=== PATIENT | female | born 1965 | race Caucasian/White ===

== ENCOUNTER 2018-07-24 13:52 | Outpatient (CLI) | payer BC ==
--- NOTE | 2018-07-25 11:35 | ULT ---
RENAL ULTRASOUND: HISTORY: Hypertension and chronic kidney disease. COMPARISON: None. TECHNIQUE: Multiplanar hawley-scale and color Doppler images were obtained in a renal ultrasound. Spectal analysis of the Doppler waveforms of the aorta and renal arteries were performed. FINDINGS: There is bilateral renal cortical thinning. There is no evidence of hydronephrosis or shadowing calc jessica in either kidney. The kidneys measure 12.1 and 10.8 cm in length on the right and left, respecti vely. The urinary bladder is predominantly decompressed, without focal abnormality. The peak systolic velocity in the aorta is 96 cm per second. The peak systolic velocity in the right renal artery s 76 cm per second. The peak systolic velocity in the left renal artery is 67 cm per s econd. The right renal artery to aortic ratio is 0.8. The left renal artery to aortic ratio is 0.7. IMPRESSION: 1. Cortical thinning of the kidneys is likely secondary to chronic medical renal disease. 2. No evidence of renal artery stenosis. POS: WHIT
== END 2018-07-24 13:53 | disposition home or self-care (01) ==
LOC: BICULT 13:52
PROVIDERS: ATTEND Internal Medicine Nephrology
DX: I12.9 Hypertensive chronic kidney disease with stage 1 through stage 4 chronic kidney disease, or unspecified chronic kidney disease (principal); N18.3 Chronic kidney disease, stage 3 (moderate); N28.89 Other specified disorders of kidney and ureter
CPT/HCPCS: 76700; 76770

== ENCOUNTER 2018-07-24 14:34 | Outpatient (CLI) | payer BC ==
--- NOTE | 2018-08-09 13:55 | MMO ---
Bilateral MAMMO Bilat Screen [facility]. CLINICAL HISTORY: Patient is 53 years old and is seen for screening. The patient has the following and maternal aunt, malignant (generic). The patient has no personal history of cancer. VIEWS: The views performed were: bilateral craniocaudal with tomosynthesis; bilateral mediolateral oblique with tomosynthesis; and right mediolateral oblique. FILMS COMPARED: The present examination has been compared to prior imaging studies performed at [facility] on 08/17/2012, and at [facility] on 09/10/2010. MAMMOGRAM FINDINGS: There are scattered fibroglandular densities. There are no suspicious masses, suspicious calcifications, or new areas of architectural distortion. IMPRESSION: THERE IS NO MAMMOGRAPHIC EVIDENCE OF MALIGNANCY. A ROUTINE FOLLOW-UP MAMMOGRAM IN 1 YEAR IS RECOMMENDED. THE RESULTS OF THIS EXAM WERE SENT TO THE PATIENT. ACR BI-RADS Category 1 - Negative MAMMOGRAPHY NOTE: 1. A negative mammogram report should not delay a biopsy if a dominant of clinically suspicious mass is present. 2. Approximately 10% to 15% of breast cancers are not detected by mammography. 3. Adenosis and dense breasts may obscure an underlying neoplasm.
== END 2018-07-24 14:35 | disposition home or self-care (01) ==
LOC: BICMAMMO 14:34
PROVIDERS: ATTEND Family Medicine
DX: Z12.31 Encounter for screening mammogram for malignant neoplasm of breast (principal); Z80.3 Family history of malignant neoplasm of breast
CPT/HCPCS: 77063; 77067

== ENCOUNTER 2018-10-02 15:20 | Observation (INO) | payer BC ==
[2018-10-02 15:47] LABS: #Basophils 0.1 thou/uL (0.0-0.2); #Eosinphils 0.6 thou/uL (0.0-0.7); #Lymphocytes 2.4 thou/uL (1.20-3.40); #Monocytes 0.5 thou/uL (0.11-0.59); #Neutrophils 5.6 thou/uL (1.40-6.50); %Basophils 0.7 % (0.0-1.0); %Eosinophils 6.7 % (0.0-10.0); %Lymphocytes 26.2 % (21.0-51.0); %Monocytes 5.8 % (0.0-10.0); %Neutrophils 60.6 % (42.0-75.0); Hemoglobin 14.6 g/dL (12.0-16.0); Mean Corpuscular HGB CONC 32.2 g/dL (32.0-36.0); Mean Corpuscular Hemoglobin 28.8 pg (27.0-31.0); Mean Corpuscular Volume 89.4 fL (78.0-98.0); Mean Platelet Volume 7.7 fL (7.4-10.4); Platelet Count 231 thou/uL (130-400); RBC Distribution Width 12.2 % (11.5-14.5); Red Blood Cell (RBC) Count 5.07 mill/uL (4.20-5.40); White Blood Cell (WBC) Count 9.3 thou/uL (4.8-10.8)
--- NOTE | 2018-10-02 15:52 | RAD ---
CHEST 1 VIEW: Date: 10/02/18 HISTORY: Chest pain. FINDINGS: Heart size is normal. The lungs are clear. No confluent pneumonia, overt edema, or pleural effusion. IMPRESSION: No acute intrathoracic disease. POS: RRE
[2018-10-02 16:10] LABS: ALT (SGPT) 29 U/L (8-55); AST (SGOT) 22 U/L (5-34); Albumin 4.6 g/dL (3.5-5.0); Alkaline Phosphatase 100 U/L (40-150); Anion Gap 14 mmol/L (10-20); BUN (Urea Nitrogen) 14 mg/dL (9.8-20.1); Bilirubin, Total 0.7 mg/dL (0.2-1.2); CK (CPK) 73 U/L (29-168); Calc. Creatinine Clearance 0 mL/min (70-130); Calcium 10.3 mg/dL (7.8-10.44); Carbon Dioxide 24 mmol/L (22-29); Chloride 106 mmol/L (98-107); Estimated GFR-MDRD 48; Globulin 2.4 g/dL (2.4-3.5); Glucose 102 mg/dL (70-105); Potassium 4.2 mmol/L (3.5-5.1); Sodium 140 mmol/L (136-145)
[2018-10-02] MEDS ORDERED: Aspirin Chewable 81 MG TAB ONE (17:32)
[2018-10-02] MEDS ORDERED: Acetaminophen 325 MG TAB PO PRN (18:17)
[2018-10-02] MEDS ORDERED: Senokot S 8.6-50 MG TAB PO PRN (18:17)
[2018-10-02 19:30] LABS: Troponin I Less than 0.010 ng/mL (< 0.028)
[2018-10-02 20:00] VITALS: BMI 37.9
[2018-10-02] MEDS: Heparin 5,000 UNITS/ML VIAL SC SCH (20:32)
[2018-10-02] MEDS ORDERED: Atorvastatin Calcium 20 MG TAB PO SCH (21:00)
[2018-10-02] MEDS ORDERED: rOPINIRole HCl 0.25 MG TAB PO SCH (21:00)
--- NOTE | 2018-10-02 21:12 | HP ---
CHIEF COMPLAINT: Chest pain. HISTORY OF PRESENT ILLNESS: The patient is a 53-year-old female with past medical history of hypertension, hyperlipidemia and obesity, who presents to the hospital with complaints of chest pain on and off for the past year. States that her frequency of chest pain has increased to the point that she feels like a tightness even while she is sitting down and crocheting and also she gets it on exertion. The patient states that she does feel some diaphoresis, however, no palpitations. At times, she also states that she does get some shortness of breath but denies any fevers or chills, any headaches, any generalized body aches or pains. The patient states that she has had a stress test a long time ago, however, has not had one recently. The patient also states that she has been moving from [place] to [place] and has been under a lot of stress test because of the move. The patient did call a PCP today, who advised her to come into the ER for further evaluation. PAST MEDICAL HISTORY: As of the following. She has a history of hypertension, CKD stage 3, obesity, hyperlipidemia. PAST SURGICAL HISTORY: She denies. ALLERGIES: SHE HAS NO KNOWN DRUG ALLERGIES. MEDICATIONS: 1. She takes lisinopril 10 mg daily. 2. She takes metoprolol 25 mg b.i.d. 3. She takes atorvastatin 20 mg daily. 4. She takes escitalopram 20 mg daily. 5. She takes ropinirole 0.25 mg daily. REVIEW OF SYSTEMS: All negative except the ones mentioned above in the HPI. FAMILY HISTORY: Some remote family history of heart disease, however, nothing in her mother and father. SOCIAL HISTORY: She denies any alcohol use. She was a former smoker, quit in . Denies any drug use. She is a full code and lives with the . PHYSICAL EXAMINATION: VITAL SIGNS: Temperature of 98.6, 56, 131/85, 19, and 97% on room air. GENERAL: She is awake, alert, and oriented x3. Does not appear in distress. HEENT: Normocephalic, atraumatic. No lymphadenopathy noted. Pupils are equal and reactive to light. CV: S1 and S2 present. No murmurs, rubs, or gallops. LUNGS: Clear to auscultation. No rhonchi or wheezes noted. ABDOMEN: Soft and nontender. Bowel sounds are present x2. EXTREMITIES: No edema. Pedal pulses are present x2. NEUROVASCULAR: No focal deficits noted. SKIN: No cuts, lesions or bruises noted. LABORATORY RESULTS: As of the following. Her WBCs are 9.3, hemoglobin of 14.6, hematocrit of 45.3, and platelets of 231. Chemistry; sodium of 140, potassium of 4.2, BUN of 14, creatinine 1.18. LFTs were negative. Troponin x1 was negative. EKG, no acute changes. Her chest x-ray was clear. ASSESSMENT AND PLAN: The patient is a very pleasant 53-year-old female, who presents to the hospital with complaints of chest pain. 1. Chest pain secondary to possible cardiac related versus gastroesophageal reflux disease versus anxiety versus musculoskeletal. We will trend troponins x3. EKG was negative. We will keep patient n.p.o. after midnight. She is able to exercise. We will do an exercise perfusion test in the morning. We will check a lipid panel in the morning. We will continue the aspirin and statin. We will hold off on the lisinopril given some mild elevation of her creatinine. 2. Acute kidney injury on chronic kidney disease. We will hold her lisinopril. Continue to monitor. 3. History of hypertension, currently stable. We will continue to monitor. 4. History of hyperlipidemia. We will check a lipid panel in the morning and continue her atorvastatin. 5. Deep venous thrombosis prophylaxis. We will put the patient on subcu heparin or Lovenox. Job ID: [id number]
[2018-10-02] MEDS ORDERED: Melatonin 3 MG TAB PO PRN (21:44)
[2018-10-02 22:08] LABS: Troponin I Less than 0.010 ng/mL (< 0.028)
[2018-10-03 04:32] LABS: #Basophils 0.1 thou/uL (0.0-0.2); #Eosinphils 0.7 thou/uL (0.0-0.7); #Monocytes 0.6 thou/uL (0.11-0.59); #Neutrophils 4.3 thou/uL (1.40-6.50); %Eosinophils 7.6 % (0.0-10.0); %Lymphocytes 34.7 % (21.0-51.0); %Monocytes 7.1 % (0.0-10.0); %Neutrophils 49.6 % (42.0-75.0); Hemoglobin 14.1 g/dL (12.0-16.0); Mean Corpuscular Hemoglobin 29.6 pg (27.0-31.0); Mean Corpuscular Volume 89.5 fL (78.0-98.0); Mean Platelet Volume 7.8 fL (7.4-10.4); Platelet Count 196 thou/uL (130-400); Red Blood Cell (RBC) Count 4.76 mill/uL (4.20-5.40); White Blood Cell (WBC) Count 8.6 thou/uL (4.8-10.8)
[2018-10-03 04:56] LABS: Anion Gap 11 mmol/L (10-20); BUN (Urea Nitrogen) 13 mg/dL (9.8-20.1); Calc. Creatinine Clearance 93 mL/min (70-130); Calcium 10.1 mg/dL (7.8-10.44); Carbon Dioxide 26 mmol/L (22-29); Cardiac Risk 4.2 (Less than 4.5); Chloride 106 mmol/L (98-107); Cholesterol 172 mg/dl (< 200 Desired); Estimated GFR-MDRD 51; Glucose 112 mg/dL (70-105); HDL Cholesterol 41 mg/dL (>60 Neg Risk); LDL Cholesterol, Calculated 96 mg/dL; Potassium 4.2 mmol/L (3.5-5.1); Sodium 139 mmol/L (136-145); Triglycerides 175 mg/dL (Less than 150)
[2018-10-03] MEDS: Heparin 5,000 UNITS/ML VIAL SC SCH ×2 (08:28→14:38)
[2018-10-03] MEDS ORDERED: Cholecalciferol (Vitamin D3) 400 UNITS TAB PO SCH (09:00)
[2018-10-03] MEDS ORDERED: Aspirin 81 mg Enteric Coated Tablet PO SCH (09:00)
[2018-10-03] MEDS ORDERED: Escitalopram Oxalate 20 mg Tablet PO SCH (09:00)
[2018-10-03] MEDS ORDERED: Enoxaparin Sodium 40 MG/0.4 ML SYRINGE SC SCH (09:00)
--- NOTE | 2018-10-03 13:27 | NM ---
NM Cardiac Stress W EF WF History: Chest pain Comparison: None. Findings: Nuclear medicine cardiac stress and rest was performed after the intravenous administration of 31.8 and 9.6 mCi technetium 99m sestamibi, respectively. Adequate left ventricular uptake of radiotracer. Normal wall motion. Calculated ejection fraction of 82%. No scar or ischemia. Impression: Normal nuclear medicine cardiac stress test and ejection fraction.
[2018-10-03 13:36] VITALS: TEMP 98.3
[2018-10-03 15:53] VITALS: BP 101/60
--- NOTE | 2018-10-04 04:40 | DIS ---
DATE OF ADMISSION: 10/02/2018 DATE OF DISCHARGE: 10/03/2018 DISCHARGE DIAGNOSES: 1. Chest pain. 2. Hypertension. 3. Obesity. 4. Chronic kidney disease stage 3. HOSPITAL COURSE: The patient is a 53-year-old female who initially presented to the hospital with complaints of chest pain going on for the past several months. However, this was increasing in frequency. Her EKG was negative. Troponins x3 were negative. She underwent a nuclear cardiac stress test, which indicated a normal nuclear cardiac stress test with an EF of 82%. The patient also has been under a lot of stress recently given her move from [place] to [place], [place]. The patient at this time was found to have a blood pressure which was pretty stable ranging from a systolic of 123 to 98. At this time, her lisinopril was discontinued and her metoprolol was decreased to 12.5 mg daily. I have told her to keep a diary of her blood pressures and bring it to her primary care doctor. The patient also has a prescription of Xanax which she sometimes takes and she is also on antianxiety medications. The patient also describes some of her symptoms of GERD, like burning sensation, I did prescribe her Protonix for about a month and she needs to get re-evaluated by her PCP. HOME MEDICATIONS: Her home medications will be; 1. Lexapro 20 mg daily. 2. Atorvastatin 20 mg daily. 3. Pantoprazole 40 mg b.i.d. 4. Metoprolol 12.5 mg daily. 5. Ropinirole 0.25 at bedtime. I did discuss with the patient foods that will precipitate her GERD symptoms and she knows not to take those medications. Again, she will follow up with her primary care doctor as needed. Job ID: [id number]
== END 2018-10-03 16:27 | disposition home or self-care (01) ==
LOC: ERS 15:20 → 2SW 16:45
PROVIDERS: ADMIT Internal Medicine; ATTEND Internal Medicine
DX: R07.89 Other chest pain (principal); I12.9 Hypertensive chronic kidney disease with stage 1 through stage 4 chronic kidney disease, or unspecified chronic kidney disease; N18.3 Chronic kidney disease, stage 3 (moderate); N17.9 Acute kidney failure, unspecified; E66.9 Obesity, unspecified; E78.5 Hyperlipidemia, unspecified; F41.9 Anxiety disorder, unspecified; F32.9 Major depressive disorder, single episode, unspecified; Z68.37 Body mass index [BMI] 37.0-37.9, adult; Z87.891 Personal history of nicotine dependence; Z88.0 Allergy status to penicillin; Z79.899 Other long term (current) drug therapy
CPT/HCPCS: 36415; 71045; 78452; 80048; 80053; 80061; 82550; 84484; 85025; 93005; 93017; 94760; A9500; G0378; J1644